=== PATIENT | male | born 1990 | race Two or more races ===

== ENCOUNTER 2019-05-26 20:35 | Emergency (ER) | payer OTHER ==
[~2019-05-26] VITALS: Ht 170.2 cm; Wt 105.5 kg
[2019-05-26 21:08] VITALS: BP 139/100
[2019-05-27] MEDS ORDERED: methylPREDNISolone SOD SUCC 125 MG/2 ML VL IM ONE (01:00)
[2019-05-27] MEDS ORDERED: cefTRIAXone SOD 1,000 MG VL IM ONE (01:00)
== END 2019-05-27 01:59 | disposition home or self-care (01) ==
LOC: EDSEX 20:38 → ER 20:38
DX: H66.93 Otitis media, unspecified, bilateral (principal); I10 Essential (primary) hypertension; F17.210 Nicotine dependence, cigarettes, uncomplicated
CPT/HCPCS: 71046; 96372; 99283; J0696; J2930